=== PATIENT | male | born 1995 | race Caucasian/White ===

== ENCOUNTER 2018-04-22 16:58 | Emergency (ER) | payer SELFPAY ==
[2018-04-22 19:17] VITALS: BP 135/90
[2018-04-22] MEDS ORDERED: ASPIRIN PO ONE (19:28)
[2018-04-22] MEDS ORDERED: MOTRIN PO ONE (19:34)
[2018-04-22 20:00] LABS: Basophils # (Auto) 0.1 K/mm3 (0.0-0.1); Basophils % (Auto) 0.7 % (0.0-1.8); Eosinophils % (Auto) 0.3 % (0.0-4.3); Hematocrit 47.6 % (35.5-45.6); Hemoglobin 15.6 gm/dl (11.8-15.2); Lymphocytes # (Auto) 1.1 K/mm3 (1.2-5.4); Lymphocytes % (Auto) 7.8 % (13.4-35.0); Mean Corpuscular HGB Conc 33 % (32-34); Mean Corpuscular Hemoglobin 28 pg (28-32); Mean Corpuscular Volume 84 fl (84-94); Monocytes # (Auto) 0.7 K/mm3 (0.0-0.8); Monocytes % (Auto) 5.2 % (0.0-7.3); Platelet Count 199 K/mm3 (140-440); Red Blood Count 5.67 M/mm3 (3.65-5.03)
[2018-04-22 20:11] LABS: BUN/Creatinine Ratio 10; Blood Urea Nitrogen 10 mg/dL (9-20); Calcium 9.1 mg/dL (8.4-10.2); Hemolysis Index 5
== END 2018-04-23 01:05 | disposition left against medical advice (07) ==
LOC: ED 16:58
DX: R07.89 Other chest pain (principal); Z53.21 Procedure and treatment not carried out due to patient leaving prior to being seen by health care provider
CPT/HCPCS: 36415; 80048; 84484; 85025; 93005; 93010

== ENCOUNTER 2018-04-23 11:03 | Emergency (ER) | payer SELFPAY ==
--- NOTE | 2018-04-23 14:54 | Emergency Department Report ---
ED ENT HPI - General Chief complaint: Sore Throat Stated complaint: CHEST PAIN/HEADACHE Source: patient Mode of arrival: Ambulatory Limitations: No Limitations - History of Present Illness Initial comments: This is a 23-year-old male who presents with sore throat and cough that started yesterday. Patient reports pain is 7 out of 10 on pain scale worse with swallowing. 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 He is also requesting documentation from visit yesterday. Patient states he had to leave prior to getting results. Patient states he needs documentation for work. He denies difficulty swallowing, drooling, fever, chest pain, nausea or vomiting. MD complaint: sore throat Onset/Timin -: days(s) Location: throat Severity: moderate Severity scale (0 -10): 7 Quality: aching, constant Consistency: constant Improves with: none Worsens with: swallowing, eating Associated Symptoms: cough, pain with swallowing. denies: fever, gum swelling, toothache, sore throat, tinnitus, hearing loss, discharge from ear, rhinorrhea - Related Data Previous Rx's Medication Instructions Recorded Last Taken Type Penicillin V Potassium 500 mg PO BID #20 tablet 04/23/18 Unknown Rx Allergies Allergy/AdvReac Type Severity Reaction Status Date / Time No Known Allergies Allergy Verified 04/23/18 03:20 ED Dental HPI - General Chief complaint: Sore Throat Stated complaint: CHEST PAIN/HEADACHE Source: patient Mode of arrival: Ambulatory Limitations: No Limitations - Related Data Previous Rx's Medication Instructions Recorded Last Taken Type Penicillin V Potassium 500 mg PO BID #20 tablet 04/23/18 Unknown Rx Allergies Allergy/AdvReac Type Severity Reaction Status Date / Time No Known Allergies Allergy Verified 04/23/18 03:20 ED Review of Systems ROS: Stated complaint: CHEST PAIN/HEADACHE Other details as noted in HPI Constitutional: denies: chills, fever ENT: throat pain. denies: ear pain, dental pain, hearing loss, epistaxis, congestion Respiratory: cough. denies: shortness of breath, wheezing Cardiovascular: denies: chest pain, palpitations Gastrointestinal: denies: abdominal pain, nausea, diarrhea Neurological: denies: headache, weakness, paresthesias Psychiatric: denies: anxiety, depression ED Past Medical Hx - Past Medical History Previous Medical History?: No - Surgical History Additional Surgical History: thigh - Social History Smoking Status: Former Smoker Substance Use Type: Alcohol - Medications Home Medications: Home Medications Medication Instructions Recorded Confirmed Last Taken Type Penicillin V Potassium 500 mg PO BID #20 tablet 04/23/18 Unknown Rx ED Physical Exam - General Limitations: No Limitations General appearance: alert, in no apparent distress, obese (morbidly obese) - ENT ENT exam: Absent: normal orophraynx (erythematous posterior pharynx, uvula midline, erythematous tonsils with white exudate) - Neck Neck exam: Present: normal inspection - Respiratory Respiratory exam: Present: normal lung sounds bilaterally. Absent: respiratory distress - Cardiovascular Cardiovascular Exam: Present: regular rate, normal rhythm. Absent: systolic murmur, diastolic murmur, rubs, gallop - GI/Abdominal GI/Abdominal exam: Present: soft, normal bowel sounds - Neurological Exam Neurological exam: Present: alert, oriented X3 - Psychiatric Psychiatric exam: Present: normal affect, normal mood - Skin Skin exam: Present: warm, dry, intact, normal color. Absent: rash ED Course Vital Signs 04/23/18 12:27 Temperature 99 F Pulse Rate 63 Respiratory 20 Rate Blood Pressure 125/89 O2 Sat by Pulse 99 Oximetry ED Medical Decision Making - Lab Data Lab Results 04/23/18 Range/Units 14:33 Group A Strep Rapid Negative (Negative) - Medical Decision Making This patient was examined by myself and stable. No distress noted. Vitals stable. Rapid strep obtained and negative. Physical findings are susceptible of acute pharyngitis. Given bicillin I-A 1.2 mL IM once in ER. Start penicillin V 500 mg po bid x 10 days. Take Tylenol or ibuprofen for pain. Discussed plan with patient and he agreed with plan to treat outpatient. Discharged home. Return to work tomorrow. Follow up with PCP in 48-72 hours. Critical care attestation.: If time is entered above; I have spent that time in minutes in the direct care of this critically ill patient, excluding procedure time. ED Disposition Clinical Impression: Sore throat Acute pharyngitis Qualifiers: Pharyngitis/tonsillitis etiology: unspecified etiology Qualified Code(s): J02.9 - Acute pharyngitis, unspecified Disposition: - TO HOME OR SELFCARE Is pt being admited?: No Does the pt Need Aspirin: No Condition: Stable Instructions: Pharyngitis (ED) Additional Instructions: Expect symptoms to improve within 3 or 4 days. There is no need for bed rest or isolation. Use tyleonl or ibuprofen for symptoms of sore throat, headache, and fever. Return to work in 24 hours of taking antibiotics. Follow up with Primary Care Provider in 48-72 hours. Prescriptions: Penicillin V Potassium 500 mg PO BID #20 tablet Referrals: [facility] [place] [Outside] - 3-5 Days [facility] [Outside] - 3-5 Days [facility] [Outside] - 3-5 Days Forms: Work/School Release Form(ED) Time of Disposition: 16:05 Print Language: CAMEROONIAN
[2018-04-23] MEDS ORDERED: BICILLIN L-A IM ONE (16:03)
[2018-04-23 16:28] VITALS: BP 156/75
[2018-04-23] MEDS ORDERED: MOTRIN PO ONE (16:40)
[2018-04-23] MEDS ORDERED: ULTRAM PO ONE (16:40)
[2018-04-23] MEDS ORDERED: ULTRAM ONE (16:45)
[2018-04-23] MEDS ORDERED: MOTRIN ONE (16:45)
== END 2018-04-23 17:20 | disposition home or self-care (01) ==
LOC: ED 11:03
DX: J02.9 Acute pharyngitis, unspecified (principal); Z87.891 Personal history of nicotine dependence
CPT/HCPCS: 87116; 87430; 96372; 99283; J0561